=== PATIENT | female | born 1970 | race Two or more races ===

== ENCOUNTER 2016-12-06 23:05 | Emergency (ER) | payer OTHER ==
[2016-12-06 23:10] VITALS: BMI 26.7
[2016-12-06] MEDS ORDERED: SODIUM CHLORIDE 1,000 ML IV STA (23:55)
[2016-12-06] MEDS ORDERED: ACETAMINOPHEN 1000 MG/100 ML VIAL (NON FORMULARY) IVPB ONE (23:55)
[2016-12-06] MEDS ORDERED: ONDANSETRON 4 MG/2 ML VIAL IVPB ONE (23:55)
[2016-12-07] MEDS ORDERED: ONDANSETRON 4 MG/2 ML VIAL ONE (00:01)
[2016-12-07] MEDS ORDERED: ACETAMINOPHEN INJECTION 100 ML IVPB ONE (00:01)
--- NOTE | 2016-12-07 00:02 | PDOC ---
History of Present Illness - General History Source: Patient, Family Exam Limitations: No Limitations - History of Present Illness Initial Comments: 12/07/16 00:23 The patient is a 46 year old female, with a significant past medical history of chronic sinusitis and ITP, who presents to the emergency department with fever, body aches, weakness and sinus congestion for the past week but worsening today. The patient reports that the sinus congestion is worse in the frontal and maxillary area. The patient states that she usually experiences flare ups of her sinusitis during the winter. The patient reports a fever of 102 today. She reports that she has been taking Tylenol and Advil for the fever, with some relief. The patient also reports taking 2 doses of 500 mg Amoxicillin, which she had left over from a previous infection. The patient denies nausea, vomiting , diarrhea or any recent illnesses. The patient denies any recent travel or sick contacts. Family members are at the bedside. Allergies: None reported. Past Surgical History: None reported. Social History: Non smoker. Denies alcohol or drug use. <Glenna Miller - Last Filed: 12/07/16 00:23> - General History Source: Patient, Family Exam Limitations: No Limitations <Marcus Price - Last Filed: 12/07/16 13:12> - General Chief Complaint: Weakness Stated Complaint: WEAKNESS Time Seen by Provider: 12/06/16 23:26 Past History <Glenna Miller - Last Filed: 12/07/16 00:23> - Psycho/Social/Smoking Cessation Hx Suicidal Ideation: No Smoking History: Never smoked Number of Cigarettes Smoked Daily: 0 Information on smoking cessation initiated: No Hx Alcohol Use: No Drug/Substance Use Hx: No <Marcus Price - Last Filed: 12/07/16 13:12> - Past Medical History Allergies/Adverse Reactions: Allergies Allergy/AdvReac Type Severity Reaction Status Date / Time No Known Allergies Allergy Verified 12/06/16 23:07 Home Medications: Ambulatory Orders Amoxicillin - [Amoxicillin 500mg Capsule -] 500 mg PO TID #30 capsule 12/07/16 Review of Systems - Review of Systems Able to Perform ROS?: Yes Comments:: 12/07/16 00:13 GENERAL/CONSTITUTIONAL: +Fever, body aches, weakness. No chills. HEAD, EYES, EARS, NOSE AND THROAT: +Sinus congestion. No change in vision. No ear pain or discharge. No sore throat. CARDIOVASCULAR: No chest pain or shortness of breath. RESPIRATORY: No cough, wheezing, or hemoptysis. GASTROINTESTINAL: No nausea, vomiting, diarrhea or constipation. GENITOURINARY: No dysuria, frequency, or change in urination. MUSCULOSKELETAL: No joint or muscle swelling or pain. No neck or back pain. SKIN: No rash. NEUROLOGIC: No headache, vertigo, loss of consciousness, or change in strength/ sensation. ENDOCRINE: No increased thirst. No abnormal weight change. HEMATOLOGIC/LYMPHATIC: No anemia, easy bleeding, or history of blood clots. ALLERGIC/IMMUNOLOGIC: No hives or skin allergy. <Glenna Miller - Last Filed: 12/07/16 00:23> *Physical Exam - Vital Signs Last Vital Signs Temp Pulse Resp BP Pulse Ox 100.5 F H 14 L 12 128/67 96 12/06/16 23:07 12/06/16 23:07 12/06/16 23:07 12/06/16 23:07 12/06/16 23:07 - Physical Exam Comments: 12/07/16 00:03 GENERAL: Warm to touch. Awake, alert, and fully oriented, in no acute distress. HEAD: No signs of trauma. EYES: PERRLA, EOMI, sclera anicteric, conjunctiva clear. ENT: Tenderness to the maxillary sinuses bilaterally. Throat is mildly erythematous. Auricles normal inspection, hearing grossly normal, nares patent, oropharynx clear without exudates. Moist mucosa. NECK: Normal ROM, supple, no lymphadenopathy, JVD, or masses. LUNGS: Breath sounds equal, clear to auscultation bilaterally. No wheezes, and no crackles. HEART: Tachycardic, normal S1 and S2, no murmurs, rubs or gallops. ABDOMEN: Soft, nontender, normoactive bowel sounds. No guarding, no rebound. No masses. EXTREMITIES: Normal range of motion, no edema. No clubbing or cyanosis. No cords , erythema, or tenderness. NEUROLOGICAL: Cranial nerves II through XII intact. Normal speech, normal gait. SKIN: Warm, dry, normal turgor, no rashes or lesions noted. <Glenna Miller - Last Filed: 12/07/16 00:23> - Vital Signs Last Vital Signs Temp Pulse Resp BP Pulse Ox 100.5 F H 14 L 12 128/67 96 12/06/16 23:07 12/06/16 23:07 12/06/16 23:07 12/06/16 23:07 12/06/16 23:07 <Marcus Price - Last Filed: 12/07/16 13:12> ED Treatment Course - LABORATORY CBC & Chemistry Diagram: 12/07/16 00:10 12/07/16 00:10 <Glenna Miller - Last Filed: 12/07/16 00:23> - LABORATORY CBC & Chemistry Diagram: 12/07/16 00:10 12/07/16 00:10 <Marcus Price - Last Filed: 12/07/16 13:12> Medical Decision Making - Medical Decision Making 12/07/16 00:00 A portion of this note was documented by scribe services under my direction. I have reviewed the details of the note, within reason, and agree with the documentation with the following case summary and management plan written by me. Patient treated in the ED. Nursing notes are reviewed and incorporated into the medical decision-making. Vital signs reviewed. Peripheral IV access obtained by the nurse, laboratory studies are drawn and sent, reviewed and interpreted by myself. Vital Signs Temp Pulse Resp BP Pulse Ox 100.5 F H 14 L 12 128/67 96 12/06/16 23:07 12/06/16 23:07 12/06/16 23:07 12/06/16 23:07 12/06/16 23:07 46-year-old female with past medical history of ITP, sinusitis presents with one week of sinus-like symptoms. Patient reports frontal and maxillary sinus congestion. Noted today that she developed fever 102 and generalized weakness. Patient had taken Tylenol Motrin earlier in the day with some relief of the fever. He was in the ED for evaluation. As as of note, the patient did take 2 doses of 500 mg of amoxicillin which she had left over from previous. I suspect that the patient should be started on antibiotics and I will write a prescription for amoxicillin. Given her history of ITP, we'll draw blood work. Give IV fluids, Tylenol and reassess. Labs reviewed. Pt reports feeling better. There is an elevated WBC and left shift, likely consistent with her infection. I had discussed the results with the patient and her family. They will take the amoxicillin at home and follow up with the concierge manager. I gave her strict return precautions that if she appears to worsen, to return to the ER. <Marcus Price - Last Filed: 12/07/16 13:12> *DC/Admit/Observation/Transfer - Attestations Scribe Attestion: 12/07/16 00:04 Documentation prepared by Glenna Miller, acting as medical surgical tech for Marcus Price MD. <Glenna Miller - Last Filed: 12/07/16 00:23> - Discharge Dispostion Admit: No <Marcus Price - Last Filed: 12/07/16 13:12> Diagnosis at time of Disposition: Sinusitis Qualifiers: Sinusitis location: unspecified location Chronicity: acute Recurrence: not specified Qualified Code(s): J01.90 - Acute sinusitis, unspecified - Discharge Dispostion Disposition: HOME Condition at time of disposition: Improved - Prescriptions Prescriptions: Amoxicillin - [Amoxicillin 500mg Capsule -] 500 mg PO TID #30 capsule - Patient Instructions Printed Discharge Instructions: DI for Sinusitis Additional Instructions: Please take the amoxicillin every 8 hours as prescribed. Complete the course. Follow up with your doctor. Call to schedule an appointment. If you notice any worsening symptoms such as extreme lethargy, dehydration, unable to tolerate medications, worsening ill-appearance, please return to the ER for further evaluation.
[2016-12-07 00:31] LABS: BASOPHIL 0.3 % (0-2.0); MCH 25.8 pg (25.7-33.7); MCHC 32.4 g/dl (32.0-36.0); MEAN CELL VOLUME 79.8 fl (80-96); MEAN PLT VOLUME 8.6 fl (7.5-11.1); NEUTROPHILS 91.8 % (42.8-82.8); PLATELET COUNT 129 K/MM3 (134-434); RDW 14.9 % (11.6-15.6); WHITE BLOOD COUNT 17.8 K/mm3 (4.0-10.0)
[2016-12-07 00:59] LABS: ALBUMIN 3.5 g/dl (3.4-5.0); ANION GAP 9 (8-16); BILIRUBIN,TOTAL 0.5 mg/dL (0.2-1.0); CALCIUM 8.6 mg/dL (8.5-10.1); CO2 26 mmol/L (21-32); CREATININE 0.8 mg/dL (0.55-1.02); GLUCOSE,RANDOM 139 mg/dL (74-106); SGOT/AST 14 U/L (15-37); SGPT/ALT 22 U/L (12-78)
[2016-12-07 01:00] LABS: ALK PHOS 57 U/L (45-117)
[2016-12-07 01:38] VITALS: BP 124/69; PULSE 88; TEMP 99
== END 2016-12-07 01:31 | disposition home or self-care (01) ==
LOC: JER 23:05
PROC: 3E033GC Introduction of Other Therapeutic Substance into Peripheral Vein, Percutaneous Approach (ICD-10-PCS; principal; 2016-12-06)
PROC: 3E033NZ Introduction of Analgesics, Hypnotics, Sedatives into Peripheral Vein, Percutaneous Approach (ICD-10-PCS; 2016-12-06)
DX: J01.90 Acute sinusitis, unspecified (principal)
CPT/HCPCS: 36415; 80053; 84703; 85025; 87040; 99283-25

== ENCOUNTER 2020-05-11 04:36 | Emergency (ER) | payer BC, OTHER ==
[2020-05-11 04:52] VITALS: BMI 27.4
[2020-05-11] MEDS ORDERED: ONDANSETRON 4 MG/2 ML VIAL IVPUSH ONE ×2 (04:56→05:16)
[2020-05-11] MEDS ORDERED: SODIUM CHLORIDE 0.9% 500 ML INFUS.BAG IV ONE ×2 (04:56→05:17)
--- NOTE | 2020-05-11 05:09 | PDOC ---
Attending Attestation - Resident Resident Name: Dima Ann - ED Attending Attestation I have performed the following: I have examined & evaluated the patient, The case was reviewed & discussed with the resident, I agree w/resident's findings & plan - HPI HPI: 05/11/20 05:06 see resident hpi - Physicial Exam PE: 05/11/20 05:06 see resident exam - Medical Decision Making 05/11/20 [id number] female with upper abdominal pain after eating a piece of bread that she believes may have been old with vomiting Patient is status post cholecystectomy as well as ventral hernia repair with mesh performed at [facility] Plan for labs, IV hydration analgesics, antiemetics CT scan abdomen and pelvis with contrast 05/18/20 00:05 Case signed out to oncoming physician Discharge - Discharge Information Problems reviewed: Yes Clinical Impression/Diagnosis: Epigastric pain, Ventral hernia without obstruction or gangrene Condition: Stable Disposition: HOME - Follow up/Referral Referrals: Alida Salinas MD [Primary Care Provider] - - Patient Discharge Instructions Patient Printed Discharge Instructions: DI for Epigastric Pain, DI for Ventral Hernia - Post Discharge Activity
[2020-05-11] MEDS ORDERED: PANTOPRAZOLE SODIUM 40 MG VIAL IVPUSH ONE (05:18)
[2020-05-11] MEDS ORDERED: FAMOTIDINE 20 MG/50 ML IVPB 20 MG/50 ML MG IVPB ONE ×2 (05:23→05:32)
[2020-05-11 05:27] LABS: BASO % 0.4 % (0-2.0); EOS % 0.5 % (0-4.5); HEMATOCRIT 36.9 % (32.4-45.2); LYMPH % 14.4 % (8-40); MCH 27.8 pg (25.7-33.7); MCHC 32.4 g/dl (32.0-36.0); MEAN CELL VOLUME 85.6 fl (80-96); MEAN PLT VOLUME 8.4 fl (7.5-11.1); MONO % 5.4 % (3.8-10.2); NEUT % 79.3 % (42.8-82.8); PLATELET COUNT 322 K/MM3 (134-434); RBC 4.31 M/mm3 (3.60-5.2)
--- NOTE | 2020-05-11 05:27 | PDOC ---
History of Present Illness - General Chief Complaint: Pain, Acute Stated Complaint: ABD PAIN Time Seen by Provider: 05/11/20 04:55 History Source: Patient, Old Records Exam Limitations: No Limitations - History of Present Illness Initial Comments: 05/11/20 05:26 Alta Samaniego is a 49F with PMH ITP, PSH ventral hernia repair and cholecystectomy presenting with acute onset abdominal pain. Patient was otherwise healthy and feeling well today. Ate some bread 8 hours [employer], then 8 hours later began having acute onset epigastric pain with nausea and 3x NBNB vomiting, no diarrhea. Denies chest pain, fever, SOB, urinary sx, diarrhea. No one else at home ate the bread, no sick contacts recently. PSH: ventral hernia repair, cholecystectomy NKDA No medications taken. Denies alcohol/drug/tobacco use. Past History - Medical History Allergies/Adverse Reactions: Allergies Allergy/AdvReac Type Severity Reaction Status Date / Time No Known Allergies Allergy Verified 05/11/20 04:53 Home Medications: Ambulatory Orders Amoxicillin - [Amoxicillin 500mg Capsule -] 500 mg PO TID #30 capsule 12/07/16 - Psycho-Social/Smoking History Smoking History: Never smoked Have you smoked in the past 12 months: No Number of Cigarettes Smoked Daily: 0 Information on smoking cessation initiated: No - Substance Abuse Hx (Audit-C & DAST Scrn) How often the patient has a drink containing alcohol: Never Score: In Men: 4 or > Positive; In Women: 3 or > Positive: 0 Screen Result (Pos requires Nsg. Audit-10AR): Negative In the last yr the pt used illegal drug/Rx for NonMed reason: No Score: Yes response is considered Positive: 0 Screen Result (Positive result requires Nsg. DAST-10): Negative Review of Systems - Review of Systems Constitutional: No: Symptoms Reported HEENTM: No: Symptoms Reported Respiratory: No: Symptoms reported Cardiac (ROS): No: Symptoms Reported ABD/GI: Yes: Nausea, Poor Appetite, Poor Fluid Intake, Vomiting, Abdominal cramping. No: Constipated, Diarrhea : No: Symptoms Reported Musculoskeletal: No: Symptoms Reported Integumentary: No: Symptoms Reported Neurological: No: Symptoms reported Endocrine: No: Symptoms Reported Hematologic/Lymphatic: No: Symptoms Reported All Other Systems: Reviewed and Negative *Physical Exam - Vital Signs Last Vital Signs Temp Pulse Resp BP Pulse Ox 98.4 F 82 16 158/92 100 05/11/20 04:50 05/11/20 04:50 05/11/20 04:50 05/11/20 04:50 05/11/20 04:50 - Physical Exam General Appearance: Yes: Nourished, Appropriately Dressed. No: Apparent Distress HEENT: positive: EOMI, FINN, Normal Voice, Symmetrical, Pharynx Normal, Hearing Grossly Normal. negative: Scleral Icterus (R), Scleral Icterus (L), Pharyngeal Erythema, Tonsillar Exudate, Tonsillar Erythema Neck: positive: Trachea midline, Normal Thyroid, Supple. negative: Tender, Rigid, Lymphadenopathy (R), Lymphadenopathy (L), Tender lateral, Tender midline Respiratory/Chest: positive: Lungs Clear, Normal Breath Sounds. negative: Chest Tender, Respiratory Distress, Accessory Muscle Use, Crackles, Rales, Rhonchi, Stridor, Wheezing Cardiovascular: positive: Regular Rhythm, Regular Rate. negative: Murmur Gastrointestinal/Abdominal: positive: Normal Bowel Sounds, Flat, Soft. negative: Tender, Organomegaly, Protuberent, Guarding, Rebound, Hernia Musculoskeletal: positive: Normal Inspection. negative: CVA Tenderness, CVA Tenderness (R), CVA Tenderness (L), Decreased Range of Motion Extremity: positive: Normal Capillary Refill, Normal Inspection, Normal Range of Motion. negative: Tender, Swelling, Calf Tenderness Integumentary: positive: Normal Color, Dry, Warm. negative: Cyanotic, Jaundice Neurologic: positive: Fully Oriented, Alert, Normal Mood/Affect, Normal Response ED Treatment Course - LABORATORY CBC & Chemistry Diagram: 05/11/20 05:17 05/11/20 05:17 - RADIOLOGY Radiology Studies Ordered: Category Date Time Status CHEST X-RAY PORTABLE* [RAD] Stat Radiology 05/11/20 05:23 Ordered - Medications Given in the ED: ED Medications Discontinued Medications Generic Name Dose Route Start Last Admin Trade Name Freq PRN Reason Stop Dose Admin Sodium Chloride 500 ml 05/11/20 04:56 05/11/20 05:19 Normal Saline - IV 05/11/20 04:57 Not Given ONCE ONE Sodium Chloride 1,000 ml 05/11/20 05:17 05/11/20 05:19 Normal Saline - IV 05/11/20 05:18 1,000 ml ONCE ONE Administration Medical Decision Making - Medical Decision Making 05/11/20 05:34 Patient has PMD ITP and multiple abdominal surgeries, here with acute onset epi gastric abd pain after eating bread. Most likely has food poisoning, but given large number of abd surgeries, will get CTAP wit IV contrast to evaluate. Evaluating broadly for pancreatitis, gastritis, atypical ACS, GB pathology, hernia, SBO. Ordering CBC/CMP/lipase/CP/ECG/CXR/Coags for ITP eval/serum preg/UA/UC. Giving famotidine, Zofran, and IV fluids. ECG shows NSR with HR 86, no GEMINI/D or TWI, low voltage. 05/11/20 05:37 Labs notable for: - WBC 15 - PLT 332 - CMP WNL - trop negative - lipase WNL - serum negative Patient eligible for CTAP with IV contrast, sending over now. Will likely be AM signout, plan for CTAP read and PO challenge/dispo. 05/11/20 07:01 Patient feeling better, no more nausea. Getting CTAP. Will sign out to day team. Discharge - Discharge Information Problems reviewed: Yes Clinical Impression/Diagnosis: Epigastric pain Condition: Fair - Follow up/Referral Referrals: Alida Salinas MD [Primary Care Provider] - - Patient Discharge Instructions - Post Discharge Activity
[2020-05-11 05:34] LABS: INR 1.06 (0.83-1.09); PROTHROMBIN TIME (PATIENT) 12.5 SEC (9.7-13.0)
[2020-05-11 05:36] LABS: ACTIVATED PTT 31.5 SECONDS (25.2-36.5)
[2020-05-11 05:51] LABS: ALK PHOS 62 U/L (45-117); ANION GAP 9 MMOL/L (8-16); BILIRUBIN,TOTAL 0.3 mg/dL (0.2-1); BLOOD UREA NITROGEN 9.3 mg/dL (7-18); CALCIUM 9.3 mg/dL (8.5-10.1); CHLORIDE 109 mmol/L (98-107); CO2 25 mmol/L (21-32); CREATININE 0.7 mg/dL (0.55-1.3); GLUCOSE,RANDOM 138 mg/dL (74-106); LIPASE 122 U/L (73-393); POTASSIUM 4.4 mmol/L (3.5-5.1); SGOT/AST 14 U/L (15-37); SGPT/ALT 17 U/L (13-61); SODIUM 144 mmol/L (136-145); TOT PROT 7.6 g/dl (6.4-8.2)
[2020-05-11 07:45] LABS: EPI CELLS 5 /uL (0-25.1); HYALINE CASTS 0 /uL (0-3.1); PH,URINE 7.5 (5.0-8.0); URINE APPEARANCE CLEAR; URINE BACTERIA 116 /uL (0-1359); URINE BILIRUBIN NEGATIVE (NEGATIVE); URINE COLOR YELLOW; URINE GLUCOSE (UA) NEGATIVE (NEGATIVE); URINE KETONE TRACE (NEGATIVE); URINE LEUK ESTERASE TRACE (NEGATIVE); URINE NITRITE NEGATIVE (NEGATIVE); URINE PROTEIN NEGATIVE (NEGATIVE); URINE RBC 6 /uL (0-23.9); URINE UROBILINOGEN 0.2 mg/dL (0.2-1.0); URINE WBC 3 /uL (0-25.8)
--- NOTE | 2020-05-11 07:57 | PDOC ---
*Physical Exam - Vital Signs Last Vital Signs Temp Pulse Resp BP Pulse Ox 98.4 F 82 16 158/92 100 05/11/20 04:50 05/11/20 04:50 05/11/20 04:50 05/11/20 04:50 05/11/20 04:50 - Physical Exam 05/11/20 07:55 Patient endorsed to me by Dr. yeboah. Patient is a 49-year-old female, status post cholecystectomy and ventral hernia repair with mesh who presented with sudden onset of right upper quadrant and epigastric pain with nausea and vomiting. In the ED, patient received IV fluids and a GI cocktail. WBCs were noted for leukocytosis of 15. LFTs were within normal limit. CT of abdomen pelvis was obtained which revealed sub-5 mm pulmonary nodules. Also noted was a fat-containing supraumbilical ventral hernia and bowel containing additional ventral hernia without evidence of obstruction but evidence of adipose inflammation. On my reassessment, patient is asymptomatic, tolerating p.o., abdomen is soft and nontender. I appreciate 2 ventral hernias which are easily reducible. Bowel sounds are normal and present in all 4 quadrants. I do not suspect SBO at this time. There is no indication for acute surgical intervention or antibiotic therapy. Patient advised of the CT findings and will be discharged with outpatient surgical follow-up. ED Treatment Course - LABORATORY CBC & Chemistry Diagram: 05/11/20 05:17 05/11/20 05:17 - ADDITIONAL ORDERS Additional order review: Laboratory Results 05/11/20 05/11/20 05/11/20 06:55 05:17 05:17 PT with INR INR PTT (Actin FS) Sodium 144 Potassium 4.4 Chloride 109 H Carbon Dioxide 25 Anion Gap 9 BUN 9.3 Creatinine 0.7 Est GFR (CKD-EPI)AfAm 118.74 Est GFR (CKD-EPI)NonAf 102.45 Random Glucose 138 H Calcium 9.3 Total Bilirubin 0.3 AST 14 L ALT 17 Alkaline Phosphatase 62 Creatine Kinase 48 Troponin I < 0.02 Total Protein 7.6 Albumin 4.0 Lipase 122 Serum , Qual Negative Urine Color Yellow Urine Appearance Clear Urine pH 7.5 Ur Specific Beth[place] 1.006 L Urine Protein Negative Urine Glucose (UA) Negative Urine Ketones Trace H Urine Blood Negative Urine Nitrite Negative Urine Bilirubin Negative Urine Urobilinogen 0.2 Ur Leukocyte Esterase Trace Urine WBC (Auto) 3 Urine RBC (Auto) 6 Urine Casts (Auto) 0 U Epithel Cells (Auto) 5 Urine Bacteria (Auto) 116 05/11/20 05:17 PT with INR 12.50 INR 1.06 PTT (Actin FS) 31.5 Sodium Potassium Chloride Carbon Dioxide Anion Gap BUN Creatinine Est GFR (CKD-EPI)AfAm Est GFR (CKD-EPI)NonAf Random Glucose Calcium Total Bilirubin AST ALT Alkaline Phosphatase Creatine Kinase Troponin I Total Protein Albumin Lipase Serum , Qual Urine Color Urine Appearance Urine pH Ur Specific [place] Urine Protein Urine Glucose (UA) Urine Ketones Urine Blood Urine Nitrite Urine Bilirubin Urine Urobilinogen Ur Leukocyte Esterase Urine WBC (Auto) Urine RBC (Auto) Urine Casts (Auto) U Epithel Cells (Auto) Urine Bacteria (Auto) 05/11/20 05:17 RBC 4.31 MCV 85.6 MCHC 32.4 RDW 14.0 MPV 8.4 Neutrophils % 79.3 Lymphocytes % 14.4 D Monocytes % 5.4 Eosinophils % 0.5 D Basophils % 0.4 - Medications Given in the ED: ED Medications Discontinued Medications Generic Name Dose Route Start Last Admin Trade Name Freq PRN Reason Stop Dose Admin Famotidine/Sodium Chloride 20 mg in 50 mls @ 100 mls/hr 05/11/20 05:23 05/11/20 05:39 Pepcid 20 Mg Premixed Ivpb - IVPB 05/11/20 05:52 100 mls/hr ONCE ONE Administration Ondansetron HCl 4 mg 05/11/20 04:56 05/11/20 05:39 Zofran Injection IVPUSH 05/11/20 04:57 4 mg NOW ONE Administration Ondansetron HCl 4 mg 05/11/20 05:16 05/11/20 05:39 Zofran Injection IVPUSH 05/11/20 05:17 Not Given NOW ONE Pantoprazole Sodium 40 mg 05/11/20 05:18 05/11/20 05:31 Protonix Iv IVPUSH 05/11/20 05:19 Not Given ONCE ONE Sodium Chloride 500 ml 05/11/20 04:56 05/11/20 05:19 Normal Saline - IV 05/11/20 04:57 Not Given ONCE ONE Sodium Chloride 1,000 ml 05/11/20 05:17 05/11/20 05:19 Normal Saline - IV 05/11/20 05:18 1,000 ml ONCE ONE Administration Discharge - Discharge Information Problems reviewed: Yes Clinical Impression/Diagnosis: Epigastric pain, Ventral hernia without obstruction or gangrene Condition: Stable Disposition: HOME - Follow up/Referral Referrals: Alida Salinas MD [Primary Care Provider] - - Patient Discharge Instructions Patient Printed Discharge Instructions: DI for Epigastric Pain, DI for Ventral Hernia - Post Discharge Activity
[2020-05-11 07:58] VITALS: BP 135/82; PULSE 91; TEMP 99.1
--- NOTE | 2020-05-11 09:17 | EKG ---
Test Reason : Blood Pressure : / mmHG Vent. Rate : 086 BPM Atrial Rate : 086 BPM P-R Int : 148 ms QRS Dur : 076 ms QT Int : 382 ms P-R-T Axes : 041 022 067 degrees QTc Int : 457 ms NORMAL SINUS RHYTHM POSSIBLE LEFT ATRIAL ENLARGEMENT LOW VOLTAGE QRS BORDERLINE ECG NO PREVIOUS ECGS AVAILABLE Confirmed by MD STACEY, TRAVIS ([id number]) on 05/11/2020 9:17:24 AM Referred By: Confirmed By:TRAVIS IBARRA MD
== END 2020-05-11 08:07 | disposition home or self-care (01) ==
LOC: JER 04:36
PROC: 3E033GC Introduction of Other Therapeutic Substance into Peripheral Vein, Percutaneous Approach (ICD-10-PCS; principal; 2020-05-11)
PROC: 3E0337Z Introduction of Electrolytic and Water Balance Substance into Peripheral Vein, Percutaneous Approach (ICD-10-PCS; 2020-05-11)
DX: R10.13 Epigastric pain (principal)
CPT/HCPCS: 36415; 74177-TC; 80053; 81003; 82550; 83690; 84484; 84703; 85025; 85610; 85730; 87086; 93005; 93010; 99285-25; Q9967